=== PATIENT | female | born 1995 | race Caucasian/White ===

== ENCOUNTER 2018-01-03 18:42 | Emergency (ER) | payer BC ==
[~2018-01-03] VITALS: Ht 160 cm; Wt 50.3 kg
[2018-01-03 18:52] VITALS: Ht 160 cm; Wt 50.3 kg
[2018-01-03 20:25] LABS: BASOPHIL % 0.3 % (0-2); PLATELET COUNT 214 x10^3mcL (130-400); RED CELL DISTRIBUTION WIDTH 11.8 % (11.5-14.5)
[2018-01-03 20:31] LABS: CALCIUM 9.4 mg/dL (8.5-10.1); CARBON DIOXIDE 27.8 mmol/L (21-32); CHLORIDE SERUM 100 mmol/L (98-107); CREATININE SERUM 0.8 mg/dL (0.6-1.0); GFR1 > 60 mL/min; GLUCOSE SERUM 107 mg/dL (74-106); POTASSIUM SERUM 3.8 mmol/L (3.5-5.1); SODIUM SERUM 137 mmol/L (136-145)
[2018-01-03 20:37] LABS: AMPHETAMINE QUAL UR NONE DETECTED (NEG <=1000)
[2018-01-03 20:38] LABS: ALBUMIN 3.9 g/dL (3.4-5.0); ALKALINE PHOSPHATASE 72 U/L (46-116); ALT/SGPT 36 U/L (14-59); AST/SGOT 42 U/L (15-37)
[2018-01-03 21:48] VITALS: BP 145/93
== END 2018-01-03 21:48 | disposition home or self-care (01) ==
LOC: ED 18:42
PROVIDERS: Emergency Medicine
DX: F10.239 Alcohol dependence with withdrawal, unspecified (principal); G47.00 Insomnia, unspecified; F41.9 Anxiety disorder, unspecified; R25.1 Tremor, unspecified; Z88.0 Allergy status to penicillin
CPT/HCPCS: 36415; G0480